=== PATIENT | female | born 1975 | race Caucasian/White ===

== ENCOUNTER 2016-12-09 16:15 | Emergency (ER) | payer SELFPAY ==
[2016-12-09 16:19] VITALS: BMI 33.3
[2016-12-09 16:21] VITALS: BP 133/87
== END 2016-12-09 18:02 | disposition left against medical advice (07) ==
LOC: ER 16:46
DX: M54.5 Low back pain (principal)
CPT/HCPCS: 99281

== ENCOUNTER 2017-08-04 21:10 | Emergency (ER) | payer SELFPAY ==
[2017-08-04 21:25] VITALS: BP 137/85; BMI 33.3
[2017-08-04] MEDS ORDERED: DEMEROL INJ IM ONE (23:23)
--- NOTE | 2017-08-04 23:23 | DR.GENAD ---
HPI - PCP Primary Care Physician: [facility] - Complaint/Symptoms Chief Complaint Doctors Comments: Patient presents with complaint of tooth ache right lower jaw. Chief Complaint:: pt c/o to rt lower jaw-says she has a bad tooth-no swelling seen-has bottle of pain meds that dentist prescribed but has taken all of them with no relief - Source History Provided: Patient - Mode of Arrival Mode of Arrival: Ambulatory - Timing Onset of Chief Complaint: 08/03/17 PMH - PMH Past Medical History: Yes Past Medical History: Hypertension Past Medical History Comment: fibromyalgia Past Surgical History: Yes Surgical History: Cholecystectomy Past Surgical History Comment: lap band - Family History History of Family Medical Conditions: No - Social History Does patient currently use any type of tobacco product: Yes Have you used tobacco products in the last 12 months: Yes Type of Tobacco Use: Cigarettes Does any household member use tobacco: Yes Do you use any recreational Drugs:: No Lives Where: Home - infectious screening In the last 2 months have you had wt loss of >10#?: NO Have you had fever, night sweats or hemotysis?: No Have you traveled outside the country in the last 6 months?: No Isolation: Standard ROS - Review of Systems Eyes: No Symptoms Reported ENTM: No Symptoms Reported Respiratoy: No Symptoms Reported Cardiovascular: No Symptoms Reported Gastrointestinal/Abdominal: No Symptoms Reported Genitourinary: No Symptoms Reported Neurological: No Symptoms Reported Musculoskeletal: No Symptoms Reported Integumentary: No Symptoms Reported Hematologic/Lymphatic: No Symptoms Reported Endocrine: No Symptoms Reported Psychiatric: No Symptoms Reported All Other Systems: Reviewed and Negative PE - Vital Signs Vitals: Temperature 97.8 F Pulse Rate 100 Respiratory Rate 22 Blood Pressure 137/85 O2 Sat by Pulse Oximetry 99 - General Limitations: No Limitations General Appearance: Alert, In No Apparent Distress - Head Head Exam: Normal Inspection, Atraumatic - Eyes Eye exam: Normal Appearance, PERRL, EOMI - ENT ENT Exam: Normal Exam External Ear Exam: Normal External Inspection TM/Canal Exam: Bilateral Normal Nose Exam: Normal Nose Exam Mouth Exam: Normal Inspection, Other (#32 with cavity) Throat Exam: Normal Inspection - Neck Neck Exam: Normal Inspection - Chest Chest Inspection: Normal Inspection, Symmetric Chest Wall Rise - Respiratory Respiratory Exam: Normal Lung Sounds Bilat Respiratory Exam: Bilateral Clear to Auscultation - Cardiovascular Cardiovascular Exam: Regular Rate, Normal Rhythm - Abdominal Exam Abdominal Exam: Normal Inspection, Normal Bowel Sounds Abdominal Tenderness: negative: RUQ, RLQ, LUQ, LLQ, Epigastrium, Suprapubic, Diffuse, Mild, Moderate, Severe, Other - Extremities Extremities Exam: Normal Inspection, Full ROM - Back Back Exam: Normal Inspection, Full ROM - Neurologic Neurological Exam: Alert, Oriented X3, CN II-XII Intact - Psychiatric Psychiatric Exam: Normal Affect - Skin Skin Exam: Warm, Dry, Intact - Diagnosis Discharge Problem: Tooth ache - Discharge Plan Condition: Stable - Follow ups/Referrals Follow ups/Referrals: CHICO TRENT [Primary Care Provider] - 3 days - Instructions
[2017-08-04] MEDS ORDERED: DEMEROL INJ ONE (23:26)
== END 2017-08-04 23:55 | disposition home or self-care (01) ==
LOC: ER 21:10
DX: K08.89 Other specified disorders of teeth and supporting structures (principal)
CPT/HCPCS: 96372; 99282; J2175